=== PATIENT | male | born 1970 | race Caucasian/White ===

== ENCOUNTER 2018-09-26 17:05 | Observation (INO) | payer BC ==
[2018-09-26] MEDS ORDERED: Sodium Chloride 0.9% 10 ML Syringe FLUSH PRN (17:25)
[2018-09-26] MEDS ORDERED: Ondansetron 4 MG/2 ML SDV IVPUSH ONE (17:34)
[2018-09-26] MEDS: Lactated Ringers 1,000 ML IV SCH ×3 (18:00→22:52)
[2018-09-26 18:01] LABS: ANION GAP 9.3 mmol/L (5-15); CHLORIDE,CL 102 mmol/L (98-115); SODIUM,NA 137 mmol/L (136-145)
[2018-09-26] MEDS ORDERED: Promethazine 6.25 MG/5 ML Liquid 10 ML UD Cup PO ONE (18:25)
--- NOTE | 2018-09-26 20:53 | CR ---
[id number] RAD/RAD Abdomen Flat Plate 1V Exam: RAD Abdomen Flat Plate 1V Clinical Data: ABDOMINAL DISCOMFORT COMPARISON: CORRELATION IS MADE WITH THE EXAM OF SEPTEMBER 09, 2014. FINDINGS: There is a mild ileus. There is no organomegaly. There is no pathologic calcification. There are surgical changes. IMPRESSION: MILD ILEUS. Christopher Martinez MD 09/26/18 [id number] Thank you for allowing us to participate in the care of your patient.
[2018-09-26] MEDS ORDERED: Morphine 4 MG/ML Syringe IVPUSH ONE (22:19)
[2018-09-27] MEDS: Ondansetron 4 MG/2 ML SDV IVPUSH PRN ×2 (03:18→07:37)
[2018-09-27] MEDS: Lactated Ringers 1,000 ML IV SCH ×2 (07:37→22:43)
[2018-09-27] MEDS ORDERED: Promethazine 25 MG/ML SDV IM PRN (10:28)
--- NOTE | 2018-09-27 10:41 | PCM.PN ---
- General Info Date of Service: 09/27/18 Functional Status: Reports: Pain Controlled, Urinating. Denies: Tolerating Diet (nothing by mouth), Ambulating, New Symptoms - Review of Systems General: Reports: Appetite. Denies: Fever HEENT: Reports: No Symptoms Pulmonary: Reports: No Symptoms Cardiovascular: Reports: No Symptoms Gastrointestinal: Reports: Abdominal Pain (mid epigastric), Flatus, Nausea. Denies: Decreased Appetite, Diarrhea, Difficulty Swallowing, Melena, Vomiting Genitourinary: Reports: No Symptoms Musculoskeletal: Reports: No Symptoms Skin: Reports: No Symptoms Neurological: Reports: No Symptoms Psychiatric: Reports: No Symptoms - Patient Data Vitals - Most Recent: Last Vital Signs Temp 98.0 F 09/27/18 06:59 Pulse 52 L 09/27/18 06:59 Resp 20 09/27/18 06:59 BP 178/93 H 09/27/18 06:59 Pulse Ox 94 L 09/27/18 06:59 Orthostatic Blood Pressure [ 105/56 Standing] Orthostatic Blood Pressure [ 112/62 Sitting] Orthostatic Blood Pressure [ 97/47 Supine] Weight - Most Recent: 408 lb I&O - Last 24 Hours: Intake & Output 09/26/18 09/27/18 09/27/18 22:59 06:59 14:59 Intake Total 2812 Balance 2812 Lab Results Last 24 Hours: Laboratory Results - last 24 hr 09/26/18 09/26/18 09/26/18 Range/Units 17:30 17:30 17:30 WBC 16.82 H (5.00-10.00) 10^3/uL RBC 4.96 (4.50-6.00) 10^6/uL Hgb 15.3 (13.0-17.0) g/dL Hct 45.6 (40.0-52.0) % MCV 91.9 D (82.0-92.0) fL MCH 30.8 (27.0-31.0) pg MCHC 33.6 (32.0-36.0) g/dL RDW 13.6 (11.5-14.5) % Plt Count 318 (150-400) 10^3/uL MPV 9.2 (7.4-10.4) fL Immature Gran % (Auto) 0.2 (0.0-5.0) % Neut % (Auto) 73.2 H (50.0-70.0) % Lymph % (Auto) 20.6 (20.0-40.0) % [place] % (Auto) 5.6 (2.0-8.0) % Eos % (Auto) 0.3 L (1.0-3.0) % Baso % (Auto) 0.1 (0.0-1.0) % Immature Gran # (Auto) 0.04 (0.00-0.50) 10^3/uL Neut # (Auto) 12.29 H (2.50-7.00) 10^3/uL Lymph # (Auto) 3.47 (1.00-4.00) 10^3/uL [place] # (Auto) 0.95 H (0.10-0.80) 10^3/uL Eos # (Auto) 0.05 L (0.10-0.30) 10^3/uL Baso # (Auto) 0.02 (0.00-0.10) 10^3/uL ESR 6 (0-15) mm/hr Sodium 137 (136-145) mmol/L Potassium 3.5 (3.3-5.3) mmol/L Chloride 102 (98-115) mmol/L Carbon Dioxide 29.2 (21.0-32.0) mmol/L Anion Gap 9.3 (5-15) mmol/L BUN 34 H D (6-25) mg/dL Creatinine 1.23 H (0.51-1.17) mg/dL Est Cr Clr Drug Dosing 83.24 mL/min Estimated GFR (MDRD) > 60 mL/min Glucose 92 (75 - 99) mg/dL Calcium 8.4 L (8.7-10.3) mg/dL Total Bilirubin 0.4 (0.2-1.0) mg/dL AST 16 (15-37) U/L ALT 37 (12-78) U/L Alkaline Phosphatase 78 (46-116) IU/L Total Protein 7.4 (6.4-8.2) g/dL Albumin 3.30 (3.00-4.80) g/dL 09/27/18 Range/Units 07:55 WBC 14.33 H (5.00-10.00) 10^3/uL RBC 4.75 (4.50-6.00) 10^6/uL Hgb 14.8 (13.0-17.0) g/dL Hct 43.3 (40.0-52.0) % MCV 91.2 (82.0-92.0) fL MCH 31.2 H (27.0-31.0) pg MCHC 34.2 (32.0-36.0) g/dL RDW 13.5 (11.5-14.5) % Plt Count 266 (150-400) 10^3/uL MPV 9.2 (7.4-10.4) fL Immature Gran % (Auto) 0.2 (0.0-5.0) % Neut % (Auto) 81.6 H (50.0-70.0) % Lymph % (Auto) 14.0 L (20.0-40.0) % [place] % (Auto) 4.0 (2.0-8.0) % Eos % (Auto) 0.1 L (1.0-3.0) % Baso % (Auto) 0.1 (0.0-1.0) % Immature Gran # (Auto) 0.03 (0.00-0.50) 10^3/uL Neut # (Auto) 11.68 H (2.50-7.00) 10^3/uL Lymph # (Auto) 2.01 (1.00-4.00) 10^3/uL [place] # (Auto) 0.58 (0.10-0.80) 10^3/uL Eos # (Auto) 0.02 L (0.10-0.30) 10^3/uL Baso # (Auto) 0.01 (0.00-0.10) 10^3/uL ESR (0-15) mm/hr Sodium (136-145) mmol/L Potassium (3.3-5.3) mmol/L Chloride (98-115) mmol/L Carbon Dioxide (21.0-32.0) mmol/L Anion Gap (5-15) mmol/L BUN (6-25) mg/dL Creatinine (0.51-1.17) mg/dL Est Cr Clr Drug Dosing mL/min Estimated GFR (MDRD) mL/min Glucose (75 - 99) mg/dL Calcium (8.7-10.3) mg/dL Total Bilirubin (0.2-1.0) mg/dL AST (15-37) U/L ALT (12-78) U/L Alkaline Phosphatase (46-116) IU/L Total Protein (6.4-8.2) g/dL Albumin (3.00-4.80) g/dL Med Orders - Current: Current Medications Escitalopram Oxalate (Lexapro) 10 mg PO DAILY [facility] Lactated Ringer's (Ringers, Lactated) 1,000 mls @ 125 mls/hr IV ASDIRECTED [facility] Last Admin: 09/27/18 07:37 Dose: 125 mls/hr Lisinopril (Prinivil) 10 mg PO DAILY [facility] Omeprazole (Omeprazole) 20 mg PO DAILY [facility] Promethazine HCl (Phenergan) 25 mg IM Q6H PRN PRN Reason: Nausea Sodium Chloride (Saline Flush) 10 ml FLUSH Q8HR PRN PRN Reason: keep vein open Last Admin: 09/27/18 03:18 Dose: 10 ml Discontinued Medications Lactated Ringer's (Ringers, Lactated) 1,000 mls @ 500 mls/hr IV Q2H DAREN Stop: 09/26/18 21:24 Last Admin: 09/26/18 20:00 Dose: 500 mls/hr Morphine Sulfate (Morphine) 4 mg IVPUSH ONETIME ONE Stop: 09/26/18 22:20 Last Admin: 09/26/18 22:52 Dose: 4 mg Ondansetron HCl (Zofran) 4 mg IVPUSH Q4H PRN PRN Reason: Nausea/Vomiting Last Admin: 09/27/18 07:37 Dose: 4 mg Ondansetron HCl (Zofran) 4 mg IVPUSH ONETIME ONE Stop: 09/26/18 17:35 Last Admin: 09/26/18 17:53 Dose: 4 mg Promethazine HCl (Phenergan) 25 mg PO ONETIME ONE Stop: 09/26/18 18:26 Last Admin: 09/26/18 18:48 Dose: Not Given - Exam Quality Assessment: DVT Prophylaxis (SCDs, will). No: Supplemental Oxygen Neck: Supple Lungs: Clear to Auscultation, Normal Respiratory Effort Cardiovascular: Regular Rate, Regular Rhythm GI/Abdominal Exam: Soft, Non-Tender (somewhat tender mid epigastric), No Distention, Other (very large body habitus,). No: Normal Bowel Sounds (low bowel tones), Distended, Guarding, Rigid, Tender, Mass Back Exam: No: CVA Tenderness (R) Psy/Mental Status: Alert. No: Anxious - Problem List Review Problem List Initiated/Reviewed/Updated: Yes - My Orders Last 24 Hours: My Active Orders 09/26/18 17:25 Patient Status [ADT] Routine Oxygen Therapy [RC] PRN Up to Chair [RC] ASDIRECTED VTE/DVT Education [RC] PER UNIT ROUTINE Vital Signs [RC] 0300,0700,1100,1500,1900,2300 Sodium Chloride 0.9% [Saline Flush] 10 ml FLUSH Q8HR PRN Saline Lock Insert [OM.PC] Routine Resuscitation Status Routine 09/26/18 17:33 Patient condition [COMM] Routine 09/26/18 21:00 Orthostatic Vital Signs [RC] ONETIME 09/26/18 21:25 Lactated Ringers [Ringers, Lactated] 1,000 ml IV ASDIRECTED 09/26/18 Dinner Nothing per Oral Now Diet [DIET] 09/27/18 10:26 Abdomen w Cont [CT] Routine 09/27/18 10:28 Promethazine [Phenergan] 25 mg IM Q6H PRN 09/27/18 10:32 Ambulate [RC] PER UNIT ROUTINE 09/27/18 10:34 Antiembolic Devices [RC] PER UNIT ROUTINE SCD [Sequential Compression Device] [OM.PC] Routine 09/27/18 10:45 Escitalopram [Lexapro] 10 mg PO DAILY Omeprazole 20 mg PO DAILY 09/28/18 09:00 Lisinopril [Prinivil] 10 mg PO DAILY - Plan Plan:: history summary Gaston is a 47-year-old morbid-obese gentleman diet admitted into observation last night when he came in the out lying [facility] complaining of a 4-day history of ongoing bilious vomiting every few hours. No fever or abdominal pain however quite nauseous and vomiting. Admitted to some mild diarrhea couple days prior however that had resolved. Does have hx of diverticulitis. No recent antibiotic use. Patient admitted to eating leftover food suspect contamination. History of gallbladder removal years ago likely cause of bilious emesis. Hx of diverticulitis however no abdominal pain. Denied cough chest pain abdominal pain. His BP was quite low in clinic with an accompanying lightheadedness upon standing. Patient does have GERD, hiatial hernia,anxiety, obstructive sleep apnea, history of hypertension. He does take tramadol for chronic pain and he is on a pain management contract. Hospital course to date. Called last night multiple times with increased abdominal pain, morphine given. White count trending down. Blood pressure much improved. Now more euvolemic. Appears ileus is improving. Kept patient NPO. Primary hospital problems Enteritis R/O diverticulitis Ileus, mild Hypotension, resolved comorbid, chronic conditions Morbid obesity Ongoing narcotic use Limited fluid intake hiatal hernia disposition Remain in observation, abdominal CT with contrast this am, ambulation, fluids, consider advancing diet later this PM, no narcotics, long discussion with patient regarding co-morbid exacerbating factors. Will need multi modal approach. Possible discharge this PM depending on CT.
[2018-09-27] MEDS ORDERED: Diatrizoate Meglumine/Diatrizoate Sodium 37% 120 ML Bottle PO ONE (11:27)
[2018-09-27] MEDS ORDERED: Iopamidol 755 Mg/ML 100 ML Bottle IV ONE (11:27)
[2018-09-27] MEDS ORDERED: Sodium Chloride 0.9% 50 ML IV SCH (11:30)
[2018-09-27] MEDS ORDERED: Lisinopril 10 MG Tab PO SCH (13:00)
[2018-09-27] MEDS ORDERED: Escitalopram 10 MG Tab PO SCH (13:00)
--- NOTE | 2018-09-27 13:21 | CT ---
[id number] CT/CT Abdomen Pelvis W IV EXAM: ABDOMEN AND PELVIS CT WITH CONTRAST INDICATION: Ileus. COMPARISON: October 28, 2014. DISCUSSION: There is colonic diverticulosis without evidence of diverticulitis. The small and large bowel are otherwise normal in appearance without dilation or other evidence of ileus/obstruction. Small fat-containing umbilical hernia. 10 mm cyst upper pole right kidney. Cholecystectomy. The liver, spleen, pancreas, adrenal glands, left kidney and appendix are normal in appearance. No adenopathy, free air free fluid. Degenerative changes in the spine. The osseous structures are otherwise unremarkable. IMPRESSION: 1. No acute findings. Arjun Zazueta MD 09/27/18 [id number] Thank you for allowing us to participate in the care of your patient.
[2018-09-27] MEDS: Omeprazole 20 MG Cap.CR PO SCH (13:41)
[2018-09-27] MEDS: Metoclopramide 10 MG Tab PO SCH ×2 (13:42→17:37)
[2018-09-28] MEDS ORDERED: Acetaminophen 325 MG Tab PO ONE (05:10)
[2018-09-28] MEDS: Metoclopramide 10 MG Tab PO SCH (06:14)
[2018-09-28] MEDS ORDERED: LORazepam 0.5 MG Tab PO ONE ×2 (06:54→08:35)
[2018-09-28] MEDS ORDERED: Ondansetron 4 MG/2 ML SDV IVPUSH PRN (06:55)
[2018-09-28] MEDS: Lactated Ringers 1,000 ML IV SCH (07:24)
[2018-09-28 07:45] LABS: ANION GAP 15.3 mmol/L (5-15); CHLORIDE,CL 104 mmol/L (98-115); SODIUM,NA 138 mmol/L (136-145)
[2018-09-28] MEDS ORDERED: LORazepam 0.5 MG Tab ONE (08:32)
[2018-09-28 08:59] VITALS: BP 196/100
[2018-09-28] MEDS: Omeprazole 20 MG Cap.CR PO SCH (08:59)
[2018-09-28] MEDS ORDERED: Lisinopril 10 MG Tab PO SCH (09:00)
[2018-09-28] MEDS ORDERED: Escitalopram 10 MG Tab PO SCH (09:00)
--- NOTE | 2018-09-28 11:11 | PCM.DCSUM1 ---
Discharge Summary - Hospital Course Diagnosis: Stroke: No - Discharge Data Discharge Date: 09/28/18 Discharge Disposition: Home, Self-Care 01 Condition: Fair - Patient Instructions Diet: Usual Diet as Tolerated, Drink 8-10+ Glasses/Day Activity: Apply Ice Driving: Do Not Drive Showering/Bathing: May Shower Notify Provider of: Fever, Increased Pain, Nausea and/or Vomiting Other/Special Instructions: Report any worsening anxiety - Discharge Plan *PRESCRIPTION DRUG MONITORING PROGRAM REVIEWED*: Yes *COPY OF PRESCRIPTION DRUG MONITORING REPORT IN PATIENT MARIANO: Yes Prescriptions/Med Rec: ALPRAZolam [Alprazolam] 0.5 mg PO Q8H PRN #30 tablet PRN Reason: Anxiety Home Medications: Home Meds Multivitamin [Multi-Vitamin Daily] 1 tab PO DAILY 04/20/14 [History] Omeprazole [Prilosec] 20 mg PO DAILY 04/20/14 [History] atorvaSTATin [Lipitor] 10 mg PO BEDTIME 04/20/14 [History] Nystatin/Triamcinolone Crm [Mycolog Crm] 1 applic TOP BID PRN 09/26/18 [History] Oxymetazoline [Afrin Original 0.05% Nasal [place]] 2 sprays INH Q12HR PRN [History] Topiramate [Topamax] 100 mg PO BID 09/26/18 [History] Varenicline Tartrate [Chantix] 1 mg PO ASDIRECTED 09/26/18 [History] ALPRAZolam [Alprazolam] 0.5 mg PO Q8H PRN #30 tablet 09/28/18 [Rx] Escitalopram [Lexapro] 20 mg PO DAILY #60 09/28/18 [Rx] Lisinopril 20 mg PO DAILY #30 09/28/18 [Rx] Referrals: Sudhakar Gama TRANSPORTATION OFFICER [Primary Care Provider] - (midweek next week) - Discharge Summary/Plan Comment DC Time >30 min.: Yes Discharge Summary/Plan Comment: final diagnosis Ileus, clinically resolved diverticulosis anxiety, profound morbid obesity, comorbid GERD, chronic narcotic use, discontinued history summary 47-year-old morbid-obese gentleman who I had seen in I had seen in o/p clinic was admitted into observation due to a 4-day history of ongoing bilious vomiting every few hours. No fever or abdominal pain however quite nauseous and vomiting. Admitted to some mild diarrhea couple days prior however that had resolved at the time I saw him. Does have hx of diverticulitis. No recent antibiotic use. Patient admitted to eating leftover food rhea he thought was contamination. hospital course fairly well until closer to discharge as the patient did have significant anxiety requiring alprazolam acutely. Patient felt "something must be wrong" however abdominal CT demonstated no acute pathology. He did have a KUB which demonstrated ileus he was given bowel rest, Nothing by mouth. It resolved. No acute surgical abd. 1 point I did receive also the middle night due to increased abdominal pain, morphine given. White count trending down. Blood pressure much improved. euvolemic early on in admission. Reglan was given. He started having bowel movements. on discharge he had less pain--good bowel tones. He does take tramadol for chronic pain and he is on a pain management contract so I was concern regarding ongoing narcotics and explained to him about likely cause of ileus. the day of discharged I was notified early upon arriving at the patient had significant anxiety while in the hospital-- requiring 2 does of alprazolam. Patient did calm down and was ready for discharge. he did have elevation of blood pressure which required increasing his lisinopril. medication changes/adjustments upon discharge Discontinue tramadol his continue phentermine, due to high Increase lisinopril to 20 mg daily Increase Lexapro to 20 mg aryan Alprazolam 0.25 mg by mouth every 8 hours when necessary anxiety Disposition/follow-up Patient was discharged, careful instructions were given, will follow-up in [facility]. Will need psychiatric/psychology referral - General Info Date of Service: 09/28/18 Functional Status: Reports: Pain Controlled, Ambulating, Urinating, New Symptoms (severe anxiety) - Review of Systems General: Reports: Appetite (desires to eat). Denies: Fever, Fatigue, Malaise, Chills, Night Sweats HEENT: Reports: No Symptoms Pulmonary: Reports: No Symptoms Cardiovascular: Reports: No Symptoms Gastrointestinal: Reports: Abdominal Pain (on and off abdominal pain). Denies: Constipation, Decreased Appetite, Difficulty Swallowing, Vomiting (patient state dry heaving, nurses report hiccups) Genitourinary: Reports: No Symptoms Musculoskeletal: Reports: Back Pain Skin: Denies: Bruising Neurological: Reports: No Symptoms Psychiatric: Reports: Anxiety, Agitation - Patient Data Vitals - Most Recent: Last Vital Signs Temp 99.1 F 09/28/18 06:51 Pulse 55 L 09/28/18 06:51 Resp 20 09/28/18 06:51 BP 196/100 H 09/28/18 08:59 Pulse Ox 98 09/28/18 06:55 Orthostatic Blood Pressure [ 122/89 Standing] Orthostatic Blood Pressure [ 144/84 Sitting] Orthostatic Blood Pressure [ 160/87 Supine] Weight - Most Recent: 408 lb I&O - Last 24 hours: Intake & Output 09/27/18 09/28/18 09/28/18 22:59 06:59 14:59 Intake Total 757 1117 Balance 757 1117 Lab Results - Last 24 hrs: Laboratory Results - last 24 hr 09/28/18 09/28/18 Range/Units 06:55 06:55 WBC 11.90 H (5.00-10.00) 10^3/uL RBC 4.75 (4.50-6.00) 10^6/uL Hgb 14.9 (13.0-17.0) g/dL Hct 43.3 (40.0-52.0) % MCV 91.2 (82.0-92.0) fL MCH 31.4 H (27.0-31.0) pg MCHC 34.4 (32.0-36.0) g/dL RDW 13.4 (11.5-14.5) % Plt Count 285 (150-400) 10^3/uL MPV 9.5 (7.4-10.4) fL Immature Gran % (Auto) 0.3 (0.0-5.0) % Neut % (Auto) 72.8 H (50.0-70.0) % Lymph % (Auto) 20.0 (20.0-40.0) % [place] % (Auto) 6.2 (2.0-8.0) % Eos % (Auto) 0.4 L (1.0-3.0) % Baso % (Auto) 0.3 (0.0-1.0) % Immature Gran # (Auto) 0.04 (0.00-0.50) 10^3/uL Neut # (Auto) 8.66 H (2.50-7.00) 10^3/uL Lymph # (Auto) 2.38 (1.00-4.00) 10^3/uL [place] # (Auto) 0.74 (0.10-0.80) 10^3/uL Eos # (Auto) 0.05 L (0.10-0.30) 10^3/uL Baso # (Auto) 0.03 (0.00-0.10) 10^3/uL Sodium 138 (136-145) mmol/L Potassium 3.3 (3.3-5.3) mmol/L Chloride 104 (98-115) mmol/L Carbon Dioxide 22.0 (21.0-32.0) mmol/L Anion Gap 15.3 H (5-15) mmol/L BUN 14 (6-25) mg/dL Creatinine 0.76 (0.51-1.17) mg/dL Est Cr Clr Drug Dosing 134.72 mL/min Estimated GFR (MDRD) > 60 mL/min Glucose 121 H (75 - 99) mg/dL Calcium 8.5 L (8.7-10.3) mg/dL Med Orders - Current: Current Medications Escitalopram Oxalate (Lexapro) 20 mg PO DAILY [facility] Last Admin: 09/28/18 08:58 Dose: 20 mg Lactated Ringer's (Ringers, Lactated) 1,000 mls @ 125 mls/hr IV ASDIRECTED [facility] Last Admin: 09/28/18 07:24 Dose: 125 mls/hr Sodium Chloride (Normal Saline) 50 mls @ 200 mls/min IV ASDIRECTED [facility] Last Admin: 09/27/18 13:59 Dose: 200 mls/min Lisinopril (Prinivil) 20 mg PO DAILY [facility] Last Admin: 09/28/18 08:59 Dose: 20 mg Metoclopramide HCl (Reglan) 10 mg PO TIDAC [facility] Last Admin: 09/28/18 06:14 Dose: 10 mg Omeprazole (Omeprazole) 20 mg PO DAILY [facility] Last Admin: 09/28/18 08:59 Dose: 20 mg Ondansetron HCl (Zofran) 4 mg IVPUSH Q4H PRN PRN Reason: Nausea/Vomiting Last Admin: 09/28/18 07:15 Dose: 4 mg Sodium Chloride (Saline Flush) 10 ml FLUSH Q8HR PRN PRN Reason: keep vein open Last Admin: 09/27/18 03:18 Dose: 10 ml Discontinued Medications Acetaminophen (Tylenol) 650 mg PO NOW ONE Stop: 09/28/18 05:11 Last Admin: 09/28/18 05:34 Dose: 650 mg Diatrizoate Meglum/Diatrizoate Sod (Gastrografin 37%) 120 ml PO ONETIME ONE Stop: 09/27/18 11:28 Last Admin: 09/27/18 14:00 Dose: 30 ml Escitalopram Oxalate (Lexapro) 10 mg PO DAILY [facility] Last Admin: 09/27/18 13:42 Dose: 10 mg Lactated Ringer's (Ringers, Lactated) 1,000 mls @ 500 mls/hr IV Q2H [facility] Stop: 09/26/18 21:24 Last Admin: 09/26/18 20:00 Dose: 500 mls/hr Iopamidol (Isovue-370 (76%)) 100 ml IV ONETIME ONE Stop: 09/27/18 11:28 Last Admin: 09/27/18 13:59 Dose: 125 ml Lisinopril (Prinivil) 10 mg PO DAILY [facility] Last Admin: 09/27/18 13:41 Dose: 10 mg Lorazepam (Ativan) 0.5 mg PO ONETIME ONE Stop: 09/28/18 06:55 Last Admin: 09/28/18 07:10 Dose: 0.5 mg Lorazepam (Ativan) Confirm Administered Dose 0.5 mg .ROUTE .STK-MED ONE Stop: 09/28/18 08:33 Last Admin: 09/28/18 08:58 Dose: 0.5 mg Lorazepam (Ativan) 0.5 mg PO ONETIME ONE Stop: 09/28/18 08:36 Last Admin: 09/28/18 08:59 Dose: 0.5 mg Morphine Sulfate (Morphine) 4 mg IVPUSH ONETIME ONE Stop: 09/26/18 22:20 Last Admin: 09/26/18 22:52 Dose: 4 mg Ondansetron HCl (Zofran) 4 mg IVPUSH Q4H PRN PRN Reason: Nausea/Vomiting Last Admin: 09/27/18 07:37 Dose: 4 mg Ondansetron HCl (Zofran) 4 mg IVPUSH ONETIME ONE Stop: 09/26/18 17:35 Last Admin: 09/26/18 17:53 Dose: 4 mg Promethazine HCl (Phenergan) 25 mg PO ONETIME ONE Stop: 09/26/18 18:26 Last Admin: 09/26/18 18:48 Dose: Not Given Promethazine HCl (Phenergan) 25 mg IM Q6H PRN PRN Reason: Nausea Last Admin: 09/27/18 11:03 Dose: 25 mg - Exam General: Reports: Alert, Oriented, Moderate Distress Neck: Reports: Supple Lungs: Reports: Clear to Auscultation, Normal Respiratory Effort Cardiovascular: Reports: Regular Rate, Regular Rhythm GI/Abdominal Exam: Normal Bowel Sounds, Soft, Non-Tender, No Distention. No: No Mass, Distended, Guarding, Rigid, Rebound, Abnormal Bowel Sounds, Mass (Male) Exam: Deferred Back Exam: Denies: CVA Tenderness (L) Extremities: No Pedal Edema Psy/Mental Status: Reports: Anxious
== END 2018-09-28 11:00 | disposition home or self-care (01) ==
LOC: UNDOADMOB 17:05 → KA.MS 17:05
PROVIDERS: ADMIT Nurse Practitioner Family; ATTEND Nurse Practitioner Family
DX: K56.7 Ileus, unspecified (principal); A08.4 Viral intestinal infection, unspecified; K57.30 Diverticulosis of large intestine without perforation or abscess without bleeding; K21.9 Gastro-esophageal reflux disease without esophagitis; K44.9 Diaphragmatic hernia without obstruction or gangrene; I10 Essential (primary) hypertension; I95.9 Hypotension, unspecified; E86.1 Hypovolemia; E86.0 Dehydration; E66.01 Morbid (severe) obesity due to excess calories; F41.9 Anxiety disorder, unspecified; G47.33 Obstructive sleep apnea (adult) (pediatric); G89.29 Other chronic pain; M54.5 Low back pain; M25.562 Pain in left knee; M25.561 Pain in right knee; Z90.49 Acquired absence of other specified parts of digestive tract; Z68.43 Body mass index [BMI] 50.0-59.9, adult; Z99.89 Dependence on other enabling machines and devices; Z87.891 Personal history of nicotine dependence; Z79.899 Other long term (current) drug therapy
CPT/HCPCS: 36415; 74018; 74177; 80048; 80053; 85025; 85651; 96361; 96372; 96374; 96375; 96376; A9270; G0378; G0379; J2270; J2405; J2550; J7050; J7120; Q9963; Q9967

== ENCOUNTER 2019-09-12 10:13 | Observation (INO) | payer BC ==
[2019-09-12] MEDS ORDERED: Sodium Chloride 0.9% 1,000 ML IV ONE ×2 (10:23→14:12)
[2019-09-12] MEDS ORDERED: Ondansetron 4 MG/2 ML SDV IVPUSH ONE ×2 (10:23→12:42)
[2019-09-12] MEDS ORDERED: HYDROmorphone 1 MG/ML Syringe IVPUSH ONE (10:56)
[2019-09-12] MEDS ORDERED: Ketorolac 30 MG/ML SDV IVPUSH ONE (10:56)
[2019-09-12 11:05] LABS: ANION GAP 13.4 mmol/L (5-15); CHLORIDE,CL 106 mmol/L (98-115); SODIUM,NA 142 mmol/L (136-145)
--- NOTE | 2019-09-12 11:27 | EDM.PDOC ---
ED HPI GENERAL MEDICAL PROBLEM - General Chief Complaint: Abdominal Pain Time Seen by Provider: 09/12/19 10:48 Source of Information: Reports: Patient History Limitations: Reports: No Limitations - History of Present Illness INITIAL COMMENTS - FREE TEXT/NARRATIVE: Patient presents with vomiting and abdominal pain that started about 0700 today. He says this is similar to several episodes (went to ER in [place] or [place] 3-4 times and stayed home with some) he has had since his panniculectomy on 05/01/19. The most recent ER visit, a month ago in [place], showed nothing significant on abdominal CT per patient. He says the vomiting and pain typically last about 24 hours, sometimes a little longer. He usually gets relief from Dilaudid. He also gets relief by taking hot showers or getting in a hot tub. He uses marijuana daily since the surgery and has used quite regularly for the past 18 months he says. He has never heard of cannabinoid hyperemesis syndrome. Prior to the panniculectomy, he lost 200# through diet, exercise and medications, overseen by Sudhakar Gama. He thought he would be getting a gastric bypass but, after visiting with some who had it, decided to try other options. His abdominal pain is close to the midline of his surgical incision. There are a few firm knots or nodules probably about 1 cm in size that are a little tender. He tells me that "they" told him the lumps would eventually go away but he doesn't know when. They are consistent with scar tissue on exam today, are mobile and discreet. Abdominal Pain Score (Numeric/FACES): 10 - Related Data Allergies Allergy/AdvReac Type Severity Reaction Status Date / Time Enviromental Allergies Allergy Hives Uncoded 09/12/19 10:23 Home Meds: Home Meds Multivitamin [Multi-Vitamin Daily] 1 tab PO DAILY 04/20/14 [History] Oxymetazoline [Afrin Original 0.05% Nasal [place]] 2 sprays INH Q12HR PRN 09/26/18 [History] Lisinopril 20 mg PO DAILY #30 09/28/18 [Rx] Acetaminophen/HYDROcodone [[place] 325-5 MG] 1 tab PO BID PRN 09/12/19 [History] Omeprazole Magnesium [Prilosec Otc] 20 mg PO DAILY 09/12/19 [History] Ondansetron [Zofran] 4 mg PO Q4H 09/12/19 [History] Pregabalin [Lyrica] 75 mg PO BID 09/12/19 [History] Past Medical History - Past Health History Medical/Surgical History: Denies Medical/Surgical History Cardiovascular History: Reports: High Cholesterol, Hypertension, Other (See Below) Other Cardiovascular History: angiogram Gastrointestinal History: Reports: Hiatal Hernia, Other (See Below) Other Gastrointestinal History: gastroenteritis Musculoskeletal History: Reports: Arthritis, Back Pain, Chronic Psychiatric History: Reports: Other (See Below) Other Psychiatric History: recovering alcoholic Endocrine/Metabolic History: Reports: Obesity/BMI 30+ Dermatologic History: Reports: Other (See Below) Other Dermatologic History: hydrogenit - Infectious Disease History Infectious Disease History: Reports: C-Difficile, Influenza - Past Surgical History Other GI Surgeries/Procedures: gallbladder out 4 weeks ago Social & Family History - Family History Family Medical History: Noncontributory - Tobacco Use Smoking Status *Q: Current Some Day Smoker Years of Tobacco use: 30 Packs/Tins Daily: 2 - Recreational Drug Use Recreational Drug Use: Yes Recreational Drug Type: Reports: Marijuana/Hashish ED ROS GENERAL - Review of Systems Review Of Systems: See Below Constitutional: Reports: Chills (gets cold easily with these episodes; hot showers help ). Denies: Fever, Malaise, Weakness HEENT: Denies: Ear Pain, Throat Pain, Vision Change Respiratory: Denies: Shortness of Breath, Cough Cardiovascular: Denies: Chest Pain, Lightheadedness, Syncope GI/Abdominal: Reports: Abdominal Pain, Nausea, Vomiting. Denies: Constipation, Diarrhea (normal daily BM) : Denies: Dysuria, Flank Pain Musculoskeletal: Denies: Neck Pain, Shoulder Pain, Arm Pain, Back Pain, Hand Pain Skin: Reports: Diaphoresis (today with the vomiting). Denies: Cyanosis, Jaundice, Mottled, Pallor Neurological: Denies: Confusion, Dizziness, Headache, Seizure, Syncope, Trouble Speaking, Difficulty Walking Psychiatric: Reports: Agitation (moderate agitation today until pain controlled with Dilaudid), Anxiety. Denies: Confusion ED EXAM, GI/ABD - Physical Exam Exam: See Below Exam Limited By: No Limitations General Appearance: Alert, WD/WN, No Apparent Distress Eyes: Bilateral: Normal Appearance, EOMI Ears: Normal External Exam, Hearing Grossly Normal Nose: Normal Inspection, No Blood Throat/Mouth: Normal Inspection, Normal Lips, Normal Voice, No Airway Compromise Head: Atraumatic, Normocephalic Neck: Normal Inspection, Full Range of Motion Respiratory/Chest: No Respiratory Distress, Lungs Clear, Normal Breath Sounds, No Accessory Muscle Use Cardiovascular: Regular Rate, Rhythm, No Murmur GI/Abdominal Exam: Normal Bowel Sounds, Soft, No Organomegaly, No Distention, No Abnormal Bruit, Tender (along surgical incision, especially at midline where 1 cm nodules are present) Back Exam: Normal Inspection, Full Range of Motion. No: CVA Tenderness (L), CVA Tenderness (R) Extremities: Normal Inspection, Normal Range of Motion Neurological: Alert, Oriented, Normal Cognition, No Motor/Sensory Deficits Psychiatric: Normal Affect, Anxious Skin Exam: Warm, Dry, Intact, Normal Color, No Rash Course - Vital Signs Last Recorded V/S: Last Vital Signs Temp 96.6 F L 09/12/19 10:17 Pulse 53 L 09/12/19 11:28 Resp 14 09/12/19 11:28 BP 153/71 H 09/12/19 11:28 Pulse Ox 97 09/12/19 11:28 - Orders/Labs/Meds Orders: Active Orders 24 hr Category Date Time Status Patient Status [ADT] Routine ADT 09/12/19 14:06 Ordered CORONAVIRUS COVID-19 RAPID [MOLEC] Routine Lab 09/12/19 13:17 Ordered CORONAVIRUS COVID-19 RAPID [MOLEC] Stat Lab 09/12/19 13:19 Ordered CULTURE BLOOD [BC] Stat Lab 09/12/19 14:12 Ordered CULTURE BLOOD [BC] Stat Lab 09/12/19 14:12 Ordered Sodium Chloride 0.9% @ 999 MLS/HR (1000ml) Med 09/12/19 14:12 Ordered Sodium Chloride 0.9% [Normal Saline] 1,000 ml IV .BOLUS Sodium Chloride 0.9% [Normal Saline] 50 ml Med 09/12/19 13:15 Active IV ASDIRECTED Blood Culture x2 Reflex Set [OM.PC] Stat Oth 09/12/19 14:12 Ordered Medication Orders Sodium Chloride (Normal Saline) 50 mls @ 200 mls/min IV ASDIRECTED DAREN Last Admin: 09/12/19 13:37 Dose: 200 mls/min Documented by: ENDECAY Sodium Chloride (Normal Saline) 1,000 mls @ 999 mls/hr IV .BOLUS ONE Stop: 09/12/19 15:12 Labs: Laboratory Tests 09/12/19 09/12/19 09/12/19 Range/Units 10:30 10:30 13:21 WBC 13.15 H (5.00-10.00) 10^3/uL RBC 5.42 (4.50-6.00) 10^6/uL Hgb 16.1 (13.0-17.0) g/dL Hct 49.5 (40.0-52.0) % MCV 91.3 (82.0-92.0) fL MCH 29.7 (27.0-31.0) pg MCHC 32.5 (32.0-36.0) g/dL RDW 14.9 H (11.5-14.5) % Plt Count 296 (150-400) 10^3/uL MPV 8.7 (7.4-10.4) fL Immature Gran % (Auto) 0.2 (0.0-5.0) % Neut % (Auto) 80.9 H (50.0-70.0) % Lymph % (Auto) 13.2 L (20.0-40.0) % [place] % (Auto) 4.5 (2.0-8.0) % Eos % (Auto) 1.0 (1.0-3.0) % Baso % (Auto) 0.2 (0.0-1.0) % Neut # (Auto) 10.65 H (2.50-7.00) 10^3/uL Lymph # (Auto) 1.73 (1.00-4.00) 10^3/uL [place] # (Auto) 0.59 (0.10-0.80) 10^3/uL Eos # (Auto) 0.13 (0.10-0.30) 10^3/uL Baso # (Auto) 0.03 (0.00-0.10) 10^3/uL Immature Gran # (Auto) 0.02 (0.00-0.50) 10^3/uL Sodium 142 (136-145) mmol/L Potassium 3.7 (3.3-5.3) mmol/L Chloride 106 (98-115) mmol/L Carbon Dioxide 26.3 (21.0-32.0) mmol/L Anion Gap 13.4 (5-15) mmol/L BUN 15 (6-25) mg/dL Creatinine 0.80 (0.51-1.17) mg/dL Est Cr Clr Drug Dosing 134.15 mL/min Estimated GFR (MDRD) > 60 mL/min Glucose 120 H (75 - 99) mg/dL Calcium 8.9 (8.7-10.3) mg/dL Total Bilirubin 0.7 (0.2-1.0) mg/dL AST 15 (15-37) U/L ALT 21 (12-78) U/L Alkaline Phosphatase 75 (46-116) IU/L C-Reactive Protein 1.8 H (0.0-0.9) mg/dL Total Protein 7.7 (6.4-8.2) g/dL Albumin 3.64 (3.00-4.80) g/dL Meds: Medications Generic Name Dose Route Start Last Admin Trade Name Freq PRN Reason Stop Dose Admin Sodium Chloride 50 mls @ 200 mls/min 09/12/19 13:15 09/12/19 13:37 Normal Saline IV 200 mls/min ASDIRECTED DAREN Administration Sodium Chloride 1,000 mls @ 999 mls/hr 09/12/19 14:12 Normal Saline IV 09/12/19 15:12 .BOLUS ONE Discontinued Medications Generic Name Dose Route Start Last Admin Trade Name Freq PRN Reason Stop Dose Admin Ceftriaxone Sodium 2 gm 09/12/19 14:12 Rocephin IVPUSH 09/12/19 14:13 ONETIME ONE Hydromorphone HCl 1 mg 09/12/19 10:56 09/12/19 11:04 Dilaudid IVPUSH 09/12/19 10:57 1 mg ONETIME ONE Administration Sodium Chloride 1,000 mls @ 1,000 mls/hr 09/12/19 10:23 09/12/19 10:44 Normal Saline IV 09/12/19 11:22 1,000 mls/hr .BOLUS ONE Administration Iopamidol 100 ml 09/12/19 13:13 09/12/19 13:36 Isovue-370 (76%) IV 09/12/19 13:14 75 ml ONETIME ONE Administration Ketorolac Tromethamine 30 mg 09/12/19 10:56 09/12/19 11:00 Toradol IVPUSH 09/12/19 10:57 30 mg ONETIME ONE Administration Ondansetron HCl 4 mg 09/12/19 10:23 09/12/19 10:38 Zofran IVPUSH 09/12/19 10:24 4 mg ONETIME ONE Administration Ondansetron HCl Confirm 09/12/19 12:40 09/12/19 12:44 Zofran Administered 09/12/19 12:41 Not Given Dose 4 mg .ROUTE .STK-MED ONE Ondansetron HCl 4 mg 09/12/19 12:42 09/12/19 12:43 Zofran IVPUSH 09/12/19 12:43 4 mg ONETIME ONE Administration - Re-Assessments/Exams Free Text/Narrative Re-Assessment/Exam: 09/12/19 11:43 Shortly after getting Dilaudid and Toradol, patient became calm and relaxed. He is now resting quietly. Rates pain at 4/10. 09/12/19 13:07 Patient is feeling pain and nausea coming back again. More Zofran is given. I discussed case with Dr. Baker who agrees that this is likely due at least in some part to Cannabinoid Hyperemesis Syndrome, but also likely some narcotic withdrawal. She reviewed his record and says he has seen 5 [facility] providers requesting narcotics and has also been to [place] and [place] ERs. She saw him in clinic two weeks ago requesting narcotic refills from her. She saw his ER visit in [place] 6 weeks ago and they didn't find anything that they could admit for but there was question of possible low-grade diverticulitis without abscess or perforation. They gave him Augmentin outpatient. She would like us to not give him narcotics in ER from here forward. 09/12/19 14:15 CT shows acute uncomplicated sigmoid diverticulitis. I discussed further with Dr. Baker and will admit to observation. Starting Rocephin, more fluids now after blood cultures. Patient stable. Departure - Departure Time of Disposition: 14:13 Disposition: Refer to Observation Condition: Good Clinical Impression: Diverticulitis of sigmoid colon Emesis Qualifiers: Vomiting type: bilious vomiting Nausea presence: with nausea Qualified Code(s): R11.14 - Bilious vomiting - Discharge Information Referrals: Sudhakar Gama, BILL OF MAT[employer]S CLERK [Primary Care Provider] - Forms: ED Department Discharge Sepsis Event Note (ED) - Evaluation Sepsis Screening Result: No Definite Risk - Focused Exam Vital Signs: Vital Signs Temp Pulse Resp BP Pulse Ox 09/12/19 11:28 53 L 14 153/71 H 97 09/12/19 11:12 53 L 18 162/66 H 85 L 09/12/19 10:53 53 L 09/12/19 10:17 96.6 F L 70 20 166/84 H 99 - My Orders Last 24 Hours: My Active Orders 09/12/19 13:15 Sodium Chloride 0.9% [Normal Saline] 50 ml IV ASDIRECTED 09/12/19 13:17 CORONAVIRUS COVID-19 RAPID [MOLEC] Routine 09/12/19 13:19 CORONAVIRUS COVID-19 RAPID [MOLEC] Stat 09/12/19 14:06 Patient Status [ADT] Routine 09/12/19 14:12 CULTURE BLOOD [BC] Stat CULTURE BLOOD [BC] Stat Sodium Chloride 0.9% @ 999 MLS/HR (1000ml) Sodium Chloride 0.9% [Normal Saline] 1,000 ml IV .BOLUS Blood Culture x2 Reflex Set [OM.PC] Stat - Assessment/Plan Last 24 Hours: My Active Orders 09/12/19 13:15 Sodium Chloride 0.9% [Normal Saline] 50 ml IV ASDIRECTED 09/12/19 13:17 CORONAVIRUS COVID-19 RAPID [MOLEC] Routine 09/12/19 13:19 CORONAVIRUS COVID-19 RAPID [MOLEC] Stat 09/12/19 14:06 Patient Status [ADT] Routine 09/12/19 14:12 CULTURE BLOOD [BC] Stat CULTURE BLOOD [BC] Stat Sodium Chloride 0.9% @ 999 MLS/HR (1000ml) Sodium Chloride 0.9% [Normal Saline] 1,000 ml IV .BOLUS Blood Culture x2 Reflex Set [OM.PC] Stat
[2019-09-12] MEDS ORDERED: Ondansetron 4 MG/2 ML SDV ONE (12:40)
[2019-09-12] MEDS ORDERED: Iopamidol 755 Mg/ML 100 ML Bottle IV ONE (13:13)
[2019-09-12] MEDS: Sodium Chloride 0.9% 50 ML IV SCH ×3 (13:37→23:56)
--- NOTE | 2019-09-12 14:01 | CT ---
[id number] CT/CT Abdomen Pelvis W IV EXAM: CT Abdomen Pelvis W IV CLINICAL DATA: ABDOMINAL PAIN,VOMITTING. COMPARISON STUDY: September 27, 2018. FINDINGS: Lung bases are clear. The gallbladder surgically absent. The liver, spleen, pancreas, adrenal glands and kidneys are unremarkable. Subcentimeter hypodensity in the right kidney likely represents a simple cyst. No hydronephrosis or hydroureter. Are multiple colonic diverticula especially within the sigmoid colon. Within the proximal sigmoid colon there is an area of wall thickening surrounding inflammatory change in the region of multiple diverticula. No fluid collection, no pneumatosis or free air. There is trace free fluid within the pelvis. The appendix is visualized and appears normal. Small fat-containing periumbilical hernia. No lymphadenopathy, free fluid, or pneumoperitoneum. Scattered changes of spondylosis the spine. No fracture or osseous lesion. IMPRESSION: 1. Acute uncomplicated sigmoid diverticulitis. Everett Abdalla DO 09/12/19 [id number] Thank you for allowing us to participate in the care of your patient.
[2019-09-12] MEDS ORDERED: cefTRIAXone 2 GM Vial IVPUSH ONE (14:12)
[2019-09-12] MEDS ORDERED: Acetaminophen 325 MG Tab PO PRN (16:57)
[2019-09-12] MEDS ORDERED: Ketorolac 30 MG/ML SDV IM PRN (16:57)
[2019-09-12] MEDS: Ondansetron 4 MG/2 ML SDV IV PRN (17:49)
[2019-09-12] MEDS: metroNIDAZOLE/Normal Saline 500 MG in Premix Bag 1 BAG IV SCH ×2 (17:52→23:49)
[2019-09-12] MEDS ORDERED: Lisinopril 20 MG Tab PO ONE (19:00)
[2019-09-12] MEDS: Pregabalin 25 MG Cap PO SCH (20:35)
[2019-09-12] MEDS: Ketorolac 30 MG/ML SDV IVPUSH PRN (23:45)
[2019-09-13] MEDS: Ondansetron 4 MG/2 ML SDV IV PRN ×2 (00:07→07:51)
[2019-09-13] MEDS: Omeprazole 20 MG Cap.CR PO SCH ×2 (05:35→06:35)
[2019-09-13] MEDS: Ketorolac 30 MG/ML SDV IVPUSH PRN (05:57)
[2019-09-13] MEDS: metroNIDAZOLE/Normal Saline 500 MG in Premix Bag 1 BAG IV SCH (07:55)
[2019-09-13] MEDS: Pregabalin 25 MG Cap PO SCH (08:04)
[2019-09-13 08:07] LABS: ANION GAP 14.8 mmol/L (5-15); CHLORIDE,CL 100 mmol/L (98-115); SODIUM,NA 138 mmol/L (136-145)
[2019-09-13] MEDS ORDERED: Lisinopril 10 MG Tab PO SCH (09:00)
[2019-09-13 10:35] VITALS: BP 174/91; PULSE 65
--- NOTE | 2019-09-13 10:41 | PCM.HP.2 ---
H&P History of Present Illness - General Date of Service: 09/13/19 Admit Problem/Dx: Admission Diagnosis/Problem Admission Diagnosis/Problem Diverticulitis of sigmoid colon Source of Information: Patient, Old Records, Provider (Jian Carlson PA-C (ED provider)), RN Notes Reviewed History Limitations: Reports: No Limitations - History of Present Illness Initial Comments - Free Text/Narative: Mr. Rivero was in his usual state of health (notably with chronic intermittent abdominal and back pain as well as chronic intermittent nausea) until the day prior to presentation to the ED and that evening was out late with friends not having much fluid intake and felt like he became dehydrated. The following morning, he developed severe lower abdominal pain and increased nausea with emesis. Upon presentation to the ED, he complained of severe pain in the lower abdomen. His chronic pain is most often involving his back, lower abdomen at the surgical incision sites, and thighs at the site of increased friction of soft tissue s/p significant weight loss. He previously was taking tramadol on a daily basis and in the more recent past endorses that this hasn't worked as well any longer and has been taking [place] 5/325mg on a typically daily basis. He has been having more persistence of nausea. Endorsed to the ED provider that hot showers are typically the only thing that makes the nausea improve or go away. Has ondansetron on medication list, but hasn't been taking regularly due to feeling it hasn't helped as much. He has a history of prior substance abuse, including with alcohol (sober since January 2015) and cocaine. He currently endorses smoking marijuana (doesn't specify amount) daily in the evening. He denies any other current or recent substance use. Work-up in the ED revealed CT evidence of acute sigmoid diverticulitis without complication for which observation admission was deemed necessary by the ED provider and patient due to significant pain and nausea. This morning on rounds, he endorses feeling much better and feels ready for discharge to home for ongoing management. Tolerating clear liquids without significant pain or nausea. Voiding and stooling well. He has no new complaints since admission. Abdominal Pain Score (Numeric/FACES): 4 - Related Data Allergies/Adverse Reactions: Allergies Allergy/AdvReac Type Severity Reaction Status Date / Time Enviromental Allergies Allergy Hives Uncoded 09/12/19 10:23 Home Medications: Home Meds Multivitamin [Multi-Vitamin Daily] 1 tab PO DAILY 04/20/14 [History] Oxymetazoline [Afrin Original 0.05% Nasal [place]] 2 sprays INH Q12HR PRN 09/26/18 [History] Lisinopril 20 mg PO DAILY #30 09/28/18 [Rx] Omeprazole Magnesium [Prilosec Otc] 20 mg PO DAILY 09/12/19 [History] Pregabalin [Lyrica] 75 mg PO BID 09/12/19 [History] Acetaminophen [Tylenol] 650 mg PO Q4H PRN tablet 09/13/19 [Rx] Acetaminophen/HYDROcodone [[place] 325-5 MG] 1 tab PO BID PRN #10 09/13/19 [Rx] Amoxicillin/Clavulanate K [Augmentin 875-125 MG] 1 tab PO BID 8 Days #16 tablet 09/13/19 [Rx] Ketorolac [Toradol] 10 mg PO Q6H PRN #12 tab 09/13/19 [Rx] Ondansetron [Zofran] 4 mg PO Q4H PRN #30 tab 09/13/19 [Rx] Past Medical History Cardiovascular History: Reports: High Cholesterol, Hypertension, Other (See Below) Other Cardiovascular History: angiogram Gastrointestinal History: Reports: Diverticulosis, Hiatal Hernia, Other (See B dayan) Other Gastrointestinal History: gastroenteritis Musculoskeletal History: Reports: Arthritis, Back Pain, Chronic Psychiatric History: Reports: Other (See Below) Other Psychiatric History: recovering alcoholic Endocrine/Metabolic History: Reports: Obesity/BMI 30+ Dermatologic History: Reports: Other (See Below) Other Dermatologic History: hydrogenit - Infectious Disease History Infectious Disease History: Reports: C-Difficile, Influenza - Past Surgical History GI Surgical History: Reports: Cholecystectomy, Colonoscopy, EGD, Hernia, Abdom inal, Other (See Below) (Panniculectomy) Other GI Surgeries/Procedures: gallbladder out 4 weeks ago Musculoskeletal Surgical History: Reports: Arthroscopic Knee Social & Family History - Family History GI: Reports: Diverticulitis, Diverticulosis Musculoskeletal: Reports: Arthritis, Back pain, Chronic, Fibromyalgia - Tobacco Use Smoking Status *Q: Current Some Day Smoker Years of Tobacco use: 30 Packs/Tins Daily: 2 - Caffeine Use Caffeine Use: Reports: Soda - Recreational Drug Use Recreational Drug Use: Yes Drug Use in Last 12 Months: Yes Recreational Drug Type: Reports: Marijuana/Hashish Recreational Drug Use Frequency: Daily Recreational Drug Route: Reports: Inhaled H&P Review of Systems - Review of Systems: Review Of Systems: See Below General: Reports: Malaise, Fatigue, Decreased Appetite. Denies: Fever, Chills HEENT: Denies: Rhinitis, Sinus Congestion, Sore Throat Pulmonary: Denies: Shortness of Breath, Wheezing, Cough Cardiovascular: Denies: Chest Pain, Palpitations, Edema Gastrointestinal: Reports: Abdominal Pain, Nausea, Vomiting. Denies: Black Stool, Bloody Stool, Difficulty Swallowing, Hematemesis, Hematochezia Genitourinary: Reports: Frequency (chronic). Denies: Dysuria, Burning, Hematuria Musculoskeletal: Reports: Back Pain, Muscle Pain. Denies: Joint Swelling Skin: Denies: Jaundice, Pallor, Rash Psychiatric: Denies: Confusion, Depression, Anxiety Neurological: Reports: Headache. Denies: Numbness, Tingling Exam - Exam Exam: See Below - Vital Signs Vital Signs: Last Vital Signs Temp 36.8 C 09/13/19 06:15 Pulse 69 09/13/19 06:15 Resp 20 09/13/19 06:15 BP 131/90 09/13/19 08:04 Pulse Ox 97 09/13/19 06:15 Weight: 129.274 kg - Exam Physical Exam Comments:: GENERAL: Well-appearing adult white male lying in hospital bed in no acute distr ess. HEENT: Normocephalic, atraumatic. Conjunctiva clear. Nares patent without discharge. Mucous membranes moist. NECK: Supple, no masses. CV: Regular rate and rhythm, no murmurs, rubs, or gallops. 2+ radial pulses. PULMONARY: Normal effort, clear to auscultation bilaterally, no wheezes, rales, or rhonchi. ABDOMEN: Healed lower transverse abdominal incisions, positive bowel sounds, soft, mild tenderness to deep palpation in lower abdomen, nondistended. EXTREMITIES: No edema, cyanosis, or clubbing. MUSCULOSKELETAL: Moves all extremities well. NEUROLOGICAL: No obvious deficits. DERMATOLOGIC: No rashes or suspicious lesions in exposed areas. PSYCHIATRIC: Alert, interactive, talkative. - Patient Data Lab Results Last 24 hrs: Laboratory Results - last 24 hr 09/12/19 09/12/19 09/12/19 Range/Units 10:30 10:30 12:00 WBC 13.15 H (5.00-10.00) 10^3/uL RBC 5.42 (4.50-6.00) 10^6/uL Hgb 16.1 (13.0-17.0) g/dL Hct 49.5 (40.0-52.0) % MCV 91.3 (82.0-92.0) fL MCH 29.7 (27.0-31.0) pg MCHC 32.5 (32.0-36.0) g/dL RDW 14.9 H (11.5-14.5) % Plt Count 296 (150-400) 10^3/uL MPV 8.7 (7.4-10.4) fL Immature Gran % (Auto) 0.2 (0.0-5.0) % Neut % (Auto) 80.9 H (50.0-70.0) % Lymph % (Auto) 13.2 L (20.0-40.0) % Gregory % (Auto) 4.5 (2.0-8.0) % Eos % (Auto) 1.0 (1.0-3.0) % Baso % (Auto) 0.2 (0.0-1.0) % Neut # (Auto) 10.65 H (2.50-7.00) 10^3/uL Lymph # (Auto) 1.73 (1.00-4.00) 10^3/uL Gregory # (Auto) 0.59 (0.10-0.80) 10^3/uL Eos # (Auto) 0.13 (0.10-0.30) 10^3/uL Baso # (Auto) 0.03 (0.00-0.10) 10^3/uL Immature Gran # (Auto) 0.02 (0.00-0.50) 10^3/uL Sodium 142 (136-145) mmol/L Potassium 3.7 (3.3-5.3) mmol/L Chloride 106 (98-115) mmol/L Carbon Dioxide 26.3 (21.0-32.0) mmol/L Anion Gap 13.4 (5-15) mmol/L BUN 15 (6-25) mg/dL Creatinine 0.80 (0.51-1.17) mg/dL Est Cr Clr Drug Dosing 134.15 mL/min Estimated GFR (MDRD) > 60 mL/min Glucose 120 H (75 - 99) mg/dL Lactic Acid 1.4 (0.4-2.0) mmol/L Calcium 8.9 (8.7-10.3) mg/dL Total Bilirubin 0.7 (0.2-1.0) mg/dL AST 15 (15-37) U/L ALT 21 (12-78) U/L Alkaline Phosphatase 75 (46-116) IU/L C-Reactive Protein (0.0-0.9) mg/dL Total Protein 7.7 (6.4-8.2) g/dL Albumin 3.64 (3.00-4.80) g/dL COVID-19 ([facility]MI[facility]) (NEGATIVE) 09/12/19 09/12/19 09/13/19 Range/Units 13:17 13:21 07:15 WBC 17.27 H (5.00-10.00) 10^3/uL RBC 5.43 (4.50-6.00) 10^6/uL Hgb 16.3 (13.0-17.0) g/dL Hct 49.2 (40.0-52.0) % MCV 90.6 (82.0-92.0) fL MCH 30.0 (27.0-31.0) pg MCHC 33.1 (32.0-36.0) g/dL RDW 14.6 H (11.5-14.5) % Plt Count 312 (150-400) 10^3/uL MPV 9.5 (7.4-10.4) fL Immature Gran % (Auto) 0.3 (0.0-5.0) % Neut % (Auto) 83.2 H (50.0-70.0) % Lymph % (Auto) 10.7 L (20.0-40.0) % Gregory % (Auto) 5.7 (2.0-8.0) % Eos % (Auto) 0.0 L (1.0-3.0) % Baso % (Auto) 0.1 (0.0-1.0) % Neut # (Auto) 14.39 H (2.50-7.00) 10^3/uL Lymph # (Auto) 1.84 (1.00-4.00) 10^3/uL Gregory # (Auto) 0.98 H (0.10-0.80) 10^3/uL Eos # (Auto) 0.00 L (0.10-0.30) 10^3/uL Baso # (Auto) 0.01 (0.00-0.10) 10^3/uL Immature Gran # (Auto) 0.05 (0.00-0.50) 10^3/uL Sodium (136-145) mmol/L Potassium (3.3-5.3) mmol/L Chloride (98-115) mmol/L Carbon Dioxide (21.0-32.0) mmol/L Anion Gap (5-15) mmol/L BUN (6-25) mg/dL Creatinine (0.51-1.17) mg/dL Est Cr Clr Drug Dosing mL/min Estimated GFR (MDRD) mL/min Glucose (75 - 99) mg/dL Lactic Acid (0.4-2.0) mmol/L Calcium (8.7-10.3) mg/dL Total Bilirubin (0.2-1.0) mg/dL AST (15-37) U/L ALT (12-78) U/L Alkaline Phosphatase (46-116) IU/L C-Reactive Protein 1.8 H (0.0-0.9) mg/dL Total Protein (6.4-8.2) g/dL Albumin (3.00-4.80) g/dL COVID-19 ([facility]) Negative (NEGATIVE) 09/13/19 Range/Units 07:15 WBC (5.00-10.00) 10^3/uL RBC (4.50-6.00) 10^6/uL Hgb (13.0-17.0) g/dL Hct (40.0-52.0) % MCV (82.0-92.0) fL MCH (27.0-31.0) pg MCHC (32.0-36.0) g/dL RDW (11.5-14.5) % Plt Count (150-400) 10^3/uL MPV (7.4-10.4) fL Immature Gran % (Auto) (0.0-5.0) % Neut % (Auto) (50.0-70.0) % Lymph % (Auto) (20.0-40.0) % Gregory % (Auto) (2.0-8.0) % Eos % (Auto) (1.0-3.0) % Baso % (Auto) (0.0-1.0) % Neut # (Auto) (2.50-7.00) 10^3/uL Lymph # (Auto) (1.00-4.00) 10^3/uL Gregory # (Auto) (0.10-0.80) 10^3/uL Eos # (Auto) (0.10-0.30) 10^3/uL Baso # (Auto) (0.00-0.10) 10^3/uL Immature Gran # (Auto) (0.00-0.50) 10^3/uL Sodium 138 (136-145) mmol/L Potassium 3.4 (3.3-5.3) mmol/L Chloride 100 (98-115) mmol/L Carbon Dioxide 26.6 (21.0-32.0) mmol/L Anion Gap 14.8 (5-15) mmol/L BUN 13 (6-25) mg/dL Creatinine 0.71 (0.51-1.17) mg/dL Est Cr Clr Drug Dosing 151.15 mL/min Estimated GFR (MDRD) > 60 mL/min Glucose 114 H (75 - 99) mg/dL Lactic Acid (0.4-2.0) mmol/L Calcium 8.5 L (8.7-10.3) mg/dL Total Bilirubin 0.6 (0.2-1.0) mg/dL AST 17 (15-37) U/L ALT 30 (12-78) U/L Alkaline Phosphatase 76 (46-116) IU/L C-Reactive Protein (0.0-0.9) mg/dL Total Protein 7.8 (6.4-8.2) g/dL Albumin 3.49 (3.00-4.80) g/dL COVID-19 ([facility]MIAS) (NEGATIVE) Result Diagrams: 09/13/19 07:15 09/13/19 07:15 Sepsis Event Note - Evaluation Sepsis Screening Result: No Definite Risk - Focused Exam Vital Signs: Vital Signs Temp Pulse Resp BP BP Pulse Ox 09/13/19 08:04 131/90 09/13/19 06:15 36.8 C 69 20 158/94 H 97 09/13/19 03:00 36.7 C 66 20 163/81 H 97 09/12/19 23:45 37.1 C 66 22 H 178/89 H 97 Date Exam was Performed: 09/13/19 Time Exam was Performed: 10:31 Problem List Initiated/Reviewed/Updated: Yes Orders Last 24hrs: Active Orders 24 hr Category Date Time Status Patient Status [ADT] Routine ADT 09/12/19 14:06 Active Intake and Output [RC] 0700,1900 Care 09/12/19 16:58 Active Notify Provider Vital Signs [RC] ASDIRECTED Care 09/12/19 17:04 Active Oxygen Therapy [RC] PRN Care 09/12/19 16:57 Active Ready for Discharge [RC] PER UNIT ROUTINE Care 09/13/19 10:23 Ordered Up With Assistance [RC] ASDIRECTED Care 09/12/19 16:57 Active VTE/DVT Education [RC] PER UNIT ROUTINE Care 09/12/19 16:57 Active Vital Signs [RC] 0700,1100,1500,1900,2300,0300 Care 09/12/19 16:57 Active Clear Liquid Diet [DIET] Diet 09/12/19 Dinner Active CULTURE BLOOD [BC] Stat Lab 09/12/19 14:20 Received CULTURE BLOOD [BC] Stat Lab 09/12/19 14:35 Received Acetaminophen [Tylenol] Med 09/12/19 16:57 Active 650 mg PO Q4H PRN Ketorolac [Toradol] Med 09/13/19 00:00 Active 30 mg IVPUSH Q6H PRN Omeprazole Med 09/13/19 07:30 Active 20 mg PO ACBREAKFAST Ondansetron [Zofran] Med 09/12/19 16:57 Active 4 mg IV Q4H PRN Pregabalin [Lyrica] Med 09/12/19 21:00 Active 75 mg PO BID Sodium Chloride 0.9% [Normal Saline] 50 ml Med 09/12/19 13:15 Active IV ASDIRECTED cefTRIAXone [Rocephin] Med 09/13/19 12:00 Active 2 gm IVPUSH Q24H lisinopriL [Prinivil] Med 09/13/19 09:00 Active 20 mg PO DAILY metroNIDAZOLE/Normal Saline [Flagyl 500 MG in NS 100 ML Med 09/12/19 16:00 Active ] 500 mg Premix Bag 1 bag IV Q8H Blood Culture x2 Reflex Set [OM.PC] Stat Ot 09/12/19 14:12 Ordered Resuscitation Status Routine Resus Stat 09/12/19 16:57 Ordered Medication Orders Acetaminophen (Tylenol) 650 mg PO Q4H PRN PRN Reason: Pain (Mild 1-3)/fever Last Admin: 09/13/19 08:03 Dose: 650 mg Documented by: ALEXIA Ceftriaxone Sodium (Rocephin) 2 gm IVPUSH Q24H [facility] Last Admin: 09/13/19 10:20 Dose: 2 gm Documented by: ALEXIA Sodium Chloride (Normal Saline) 50 mls @ 200 mls/min IV ASDIRECTED [facility] Last Admin: 09/12/19 23:56 Dose: 200 mls/min Documented by: Admin: 09/12/19 17:51 Dose: 200 mls/min Documented by: Admin: 09/12/19 13:37 Dose: 200 mls/min Documented by: RADHA Metronidazole 500 mg/ Premix 100 mls @ 100 mls/hr IV Q8H [facility] Last Admin: 09/13/19 07:55 Dose: 100 mls/hr Documented by: Infusion: 09/13/19 00:49 Dose: 100 mls/hr Documented by: Admin: 09/12/19 23:49 Dose: 100 mls/hr Documented by: Infusion: 09/12/19 18:52 Dose: 100 mls/hr Documented by: Admin: 09/12/19 17:52 Dose: 100 mls/hr Documented by: JESUSITA Ketorolac Tromethamine (Toradol) 30 mg IVPUSH Q6H PRN PRN Reason: Pain (moderate 4-6) Stop: 09/17/19 00:01 Last Admin: 09/13/19 05:57 Dose: 30 mg Documented by: Admin: 09/12/19 23:45 Dose: 30 mg Documented by: DONNELL Lisinopril (Prinivil) 20 mg PO DAILY [facility] Last Admin: 09/13/19 08:04 Dose: 20 mg Documented by: ALEXIA Omeprazole (Omeprazole) 20 mg PO ACBREAKFAST [facility] Last Admin: 09/13/19 06:35 Dose: Not Given Documented by: Admin: 09/13/19 05:35 Dose: 20 mg Documented by: DONNELL Ondansetron HCl (Zofran) 4 mg IV Q4H PRN PRN Reason: Nausea/Vomiting Last Admin: 09/13/19 07:51 Dose: 4 mg Documented by: Admin: 09/13/19 00:07 Dose: 4 mg Documented by: Admin: 09/12/19 17:49 Dose: 4 mg Documented by: JESUSITA Pregabalin (Lyrica) 75 mg PO BID [facility] Last Admin: 09/13/19 08:04 Dose: 75 mg Documented by: Admin: 09/12/19 20:35 Dose: 75 mg Documented by: DONNELL Assessment/Plan Comment:: HPI summary: Mr. Rivero is a 48yoM with past medical history significant for several prior episodes of diverticulitis (last 07/24/2019) and significant prior weight loss and subsequent panniculectomy 05/01/19 who was in his usual state of health (notably with chronic intermittent abdominal and back pain as well as chronic intermittent nausea) until the day prior to presentation to the ED and that evening was out late with friends not having much fluid intake and felt like he became dehydrated. The following morning, he developed severe lower abdominal pain and increased nausea with emesis. Upon presentation to the ED, he complained of severe pain in the lower abdomen. His chronic pain is most often involving his back, lower abdomen at the surgical incision sites, and thighs at the site of increased friction of soft tissue s/p significant weight loss. He previously was taking tramadol on a daily basis and in the more recent past endorses that this hasn't worked as well any longer and has been taking [place] 5/325mg on a typically daily basis. He has been having more persistence of nausea. Endorsed to the ED provider that hot showers are typically the only thing that makes the nausea improve or go away. Has ondansetron on medication list, but hasn't been taking regularly due to feeling it hasn't helped as much. He has a history of prior substance abuse, including with alcohol (sober since January 2015), opiates (illicit and prescribed), and cocaine. He currently endorses smoking marijuana (doesn't specify amount) daily in the evening. He denies any other current or recent substance use. ED course: - VS reassuring without fever, hypotension, or tachycardia - CBC/CMP/CRP normal except WBC 13, CRP 1.8 - CT abdomen/pelvis with acute sigmoid diverticulitis without complication - NS 1L, ondansetron 4mg IV x2, hydromorphone 1mg IV, ketorolac 30mg IV, ceftriaxone 2g IV - Observation admission was deemed necessary by the ED provider and patient due to persistent abdominal pain and nausea Hospital course: Given IVF, ceftriaxone/metronidazole IV, and prn ondansetron and ketorolac. Remained afebrile without VS instability. Pain and nausea controlled. Tolerating clear liquids without significant pain or nausea. He endorses feeling much better and feels ready for discharge to home for ongoing management. CBC/CMP normal except WBC 17. Blood cultures without growth thus far. Had a lengthy discussion with the patient about the recurrent diverticulitis and need for future repeat colonoscopy in 6-8 weeks if symptoms completely resolve or colorectal surgery consultation for possible resection due to frequency of recurrences. Also discussed the confounding factors of chronic marijuana and opiate use likely playing a role with pain and nausea, possibly related to cannabis hyperemesis syndrome. Hospitalization problems and plan: # Diverticulitis # Persistent abdominal pain # Persistent nausea/vomiting # Cannabis hyperemesis syndrome, possible # Marijuana use: Currently smokes daily # Chronic opiate use Chronic, stable conditions: # HTN: Initial BPs elevated in ED, then normalized. Continue lisinopril. # Chronic pain: Important to have close outpatient follow-up and management. Continue pregabalin. # Hx substance abuse (alcohol, cocaine), in remission Hospitalization details: # FEN: NS 150cc/hr given during stay. Electrolytes normal on days of admission and discharge. Clear liquid diet. # PPX: Enoxaparin for DVT ppx if staying >24hrs. # Code status: FULL. # Disposition: Admit to observation status 09/12/19 for clinical monitoring and ma nagement of diverticulitis. Discharge to home 09/13/19.
--- NOTE | 2019-09-13 11:08 | PCM.DCSUM1 ---
Discharge Summary - Hospital Course Free Text/Narrative:: Date of admission: 09/12/19 Date of discharge: 09/13/19 Admission diagnoses: # Diverticulitis # Persistent abdominal pain # Persistent nausea/vomiting # Cannabis hyperemesis syndrome, possible # Marijuana use # Chronic opiate use # Chronic pain # Hypertension # Hx substance abuse (alcohol, cocaine), in remission Discharge diagnoses: # Diverticulitis, recurrent # Persistent abdominal pain # Persistent nausea/vomiting # Cannabis hyperemesis syndrome, possible # Marijuana use # Chronic opiate use # Chronic pain # Hypertension # Hx substance abuse (alcohol, cocaine), in remission Consultations: None Procedures: None Hospital course: Mr. Rivero is a 48yoM with past medical history significant for several prior episodes of diverticulitis (last 07/24/2019) and significant prior weight loss and subsequent panniculectomy 05/01/19 who was in his usual state of health (notably with chronic intermittent abdominal and back pain as well as chronic intermittent nausea) until the day prior to presentation to the ED and that evening was out late with friends not having much fluid intake and felt like he became dehydrated. The following morning, he developed severe lower abdominal pain and increased nausea with emesis. Upon presentation to the ED, he complained of severe pain in the lower abdomen. His chronic pain is most often involving his back, lower abdomen at the surgical incision sites, and thighs at the site of increased friction of soft tissue s/p significant weight loss. He previously was taking tramadol on a daily basis and in the more recent past endorses that this hasn't worked as well any longer and has been taking [place] 5/325mg on a typically daily basis. He has been having more persistence of nausea. Endorsed to the ED provider that hot showers are typically the only thing that makes the nausea improve or go away. Has ondansetron on medication list, but hasn't been taking regularly due to feeling it hasn't helped as much. He has a history of prior substance abuse, including with alcohol (sober since January 2015), opiates (illicit and prescribed), and cocaine. He currently endorses smoking marijuana (doesn't specify amount) daily in the evening. He denies any other current or recent substance use. ED course: - VS reassuring without fever, hypotension, or tachycardia - CBC/CMP/CRP normal except WBC 13, CRP 1.8 - CT abdomen/pelvis with acute sigmoid diverticulitis without complication - NS 1L, ondansetron 4mg IV x2, hydromorphone 1mg IV, ketorolac 30mg IV, ceftriaxone 2g IV - Observation admission was deemed necessary by the ED provider and patient due to persistent abdominal pain and nausea Hospital course: Given IVF, ceftriaxone/metronidazole IV, and prn ondansetron and ketorolac. Remained afebrile without VS instability. Pain and nausea controlled. Tolerating clear liquids without significant pain or nausea. He endorses feeling much better and feels ready for discharge to home for ongoing management. CBC/CMP normal except WBC 17. Blood cultures without growth thus far. Had a lengthy discussion with the patient about the recurrent diverticulitis and need for future repeat colonoscopy in 6-8 weeks if symptoms completely resolve or colorectal surgery consultation for possible resection due to frequency of recurrences. Also discussed the confounding factors of chronic marijuana and opiate use likely playing a role with pain and nausea, possibly related to cannabis hyperemesis syndrome. Discharge and follow-up recommendations: - Discharge to home - New medications at discharge: - Augmentin 875/125mg BID x8 days to complete 10 day antibiotic course - Ondansetron 4mg po q4h prn nausea #30 - Ketorolac 10mg po q6h prn pain #12 - [place] 5/325mg BID prn severe pain #10 - Follow-up with PCP Sudhakar Gama APRN-GAGE, in 4-5 days; recommend repeat CBC at that time to reevaluate WBC - Patient either needs colonoscopy in 6-8 weeks (if abdominal pain related to diverticulitis improves and he has no recurrent flares) or referral to general surgery for consideration of resection (if has lack of resolution of diverticulitis symptoms or has any additional recurrences, given frequent recurrences and underlying risks) Note: This is a same day admission and discharge. - Discharge Data Discharge Date: 09/13/19 Discharge Disposition: Home, Self-Care 01 Condition: Good - Referral to Home Health Primary Care Physician: Sudhakar Gama NP - Patient Instructions Diet: GI Soft/Low Residue/Low Fiber Activity: As Tolerated Showering/Bathing: May Shower Notify Provider of: Fever, Increased Pain - Discharge Plan *PRESCRIPTION DRUG MONITORING PROGRAM REVIEWED*: Yes *COPY OF PRESCRIPTION DRUG MONITORING REPORT IN PATIENT MARIANO: Yes Prescriptions/Med Rec: Amoxicillin/Clavulanate K [Augmentin 875-125 MG] 1 tab PO BID 8 Days #16 tablet Acetaminophen/HYDROcodone [[place] 325-5 MG] 1 tab PO BID PRN #10 PRN Reason: Severe pain Ketorolac [Toradol] 10 mg PO Q6H PRN #12 tab PRN Reason: Pain Ondansetron [Zofran] 4 mg PO Q4H PRN #30 tab PRN Reason: Nausea Home Medications: Home Meds Multivitamin [Multi-Vitamin Daily] 1 tab PO DAILY 04/20/14 [History] Oxymetazoline [Afrin Original 0.05% Nasal [place]] 2 sprays INH Q12HR PRN 09/26/18 [History] Lisinopril 20 mg PO DAILY #30 09/28/18 [Rx] Omeprazole Magnesium [Prilosec Otc] 20 mg PO DAILY 09/12/19 [History] Pregabalin [Lyrica] 75 mg PO BID 09/12/19 [History] Acetaminophen [Tylenol] 650 mg PO Q4H PRN tablet 09/13/19 [Rx] Acetaminophen/HYDROcodone [[place] 325-5 MG] 1 tab PO BID PRN #10 09/13/19 [Rx] Amoxicillin/Clavulanate K [Augmentin 875-125 MG] 1 tab PO BID 8 Days #16 tablet 09/13/19 [Rx] Ketorolac [Toradol] 10 mg PO Q6H PRN #12 tab 09/13/19 [Rx] Ondansetron [Zofran] 4 mg PO Q4H PRN #30 tab 09/13/19 [Rx] Referrals: Sudhakar Gama, MEDICAL RECORD CONSULTANT [Primary Care Provider] - 09/17/19 - Discharge Summary/Plan Comment DC Time >30 min.: Yes - Patient Data Vitals - Most Recent: Last Vital Signs Temp 36.6 C 09/13/19 10:34 Pulse 65 09/13/19 10:34 Resp 20 09/13/19 10:34 BP 174/91 H 09/13/19 10:34 Pulse Ox 97 09/13/19 10:34 Weight - Most Recent: 129.274 kg I&O - Last 24 hours: Intake & Output 08/06/20 08/07/20 08/07/20 22:59 06:59 14:59 Intake Total 2350 305 Output Total 50 Balance 2350 255 Lab Results - Last 24 hrs: Laboratory Results - last 24 hr 09/12/19 09/12/19 09/12/19 Range/Units 10:30 10:30 12:00 WBC 13.15 H (5.00-10.00) 10^3/uL RBC 5.42 (4.50-6.00) 10^6/uL Hgb 16.1 (13.0-17.0) g/dL Hct 49.5 (40.0-52.0) % MCV 91.3 (82.0-92.0) fL MCH 29.7 (27.0-31.0) pg MCHC 32.5 (32.0-36.0) g/dL RDW 14.9 H (11.5-14.5) % Plt Count 296 (150-400) 10^3/uL MPV 8.7 (7.4-10.4) fL Immature Gran % (Auto) 0.2 (0.0-5.0) % Neut % (Auto) 80.9 H (50.0-70.0) % Lymph % (Auto) 13.2 L (20.0-40.0) % [place] % (Auto) 4.5 (2.0-8.0) % Eos % (Auto) 1.0 (1.0-3.0) % Baso % (Auto) 0.2 (0.0-1.0) % Neut # (Auto) 10.65 H (2.50-7.00) 10^3/uL Lymph # (Auto) 1.73 (1.00-4.00) 10^3/uL [place] # (Auto) 0.59 (0.10-0.80) 10^3/uL Eos # (Auto) 0.13 (0.10-0.30) 10^3/uL Baso # (Auto) 0.03 (0.00-0.10) 10^3/uL Immature Gran # (Auto) 0.02 (0.00-0.50) 10^3/uL Sodium 142 (136-145) mmol/L Potassium 3.7 (3.3-5.3) mmol/L Chloride 106 (98-115) mmol/L Carbon Dioxide 26.3 (21.0-32.0) mmol/L Anion Gap 13.4 (5-15) mmol/L BUN 15 (6-25) mg/dL Creatinine 0.80 (0.51-1.17) mg/dL Est Cr Clr Drug Dosing 134.15 mL/min Estimated GFR (MDRD) > 60 mL/min Glucose 120 H (75 - 99) mg/dL Lactic Acid 1.4 (0.4-2.0) mmol/L Calcium 8.9 (8.7-10.3) mg/dL Total Bilirubin 0.7 (0.2-1.0) mg/dL AST 15 (15-37) U/L ALT 21 (12-78) U/L Alkaline Phosphatase 75 (46-116) IU/L C-Reactive Protein (0.0-0.9) mg/dL Total Protein 7.7 (6.4-8.2) g/dL Albumin 3.64 (3.00-4.80) g/dL COVID-19 (ERMIAS) (NEGATIVE) 09/12/19 09/12/19 09/13/19 Range/Units 13:17 13:21 07:15 WBC 17.27 H (5.00-10.00) 10^3/uL RBC 5.43 (4.50-6.00) 10^6/uL Hgb 16.3 (13.0-17.0) g/dL Hct 49.2 (40.0-52.0) % MCV 90.6 (82.0-92.0) fL MCH 30.0 (27.0-31.0) pg MCHC 33.1 (32.0-36.0) g/dL RDW 14.6 H (11.5-14.5) % Plt Count 312 (150-400) 10^3/uL MPV 9.5 (7.4-10.4) fL Immature Gran % (Auto) 0.3 (0.0-5.0) % Neut % (Auto) 83.2 H (50.0-70.0) % Lymph % (Auto) 10.7 L (20.0-40.0) % [place] % (Auto) 5.7 (2.0-8.0) % Eos % (Auto) 0.0 L (1.0-3.0) % Baso % (Auto) 0.1 (0.0-1.0) % Neut # (Auto) 14.39 H (2.50-7.00) 10^3/uL Lymph # (Auto) 1.84 (1.00-4.00) 10^3/uL [place] # (Auto) 0.98 H (0.10-0.80) 10^3/uL Eos # (Auto) 0.00 L (0.10-0.30) 10^3/uL Baso # (Auto) 0.01 (0.00-0.10) 10^3/uL Immature Gran # (Auto) 0.05 (0.00-0.50) 10^3/uL Sodium (136-145) mmol/L Potassium (3.3-5.3) mmol/L Chloride (98-115) mmol/L Carbon Dioxide (21.0-32.0) mmol/L Anion Gap (5-15) mmol/L BUN (6-25) mg/dL Creatinine (0.51-1.17) mg/dL Est Cr Clr Drug Dosing mL/min Estimated GFR (MDRD) mL/min Glucose (75 - 99) mg/dL Lactic Acid (0.4-2.0) mmol/L Calcium (8.7-10.3) mg/dL Total Bilirubin (0.2-1.0) mg/dL AST (15-37) U/L ALT (12-78) U/L Alkaline Phosphatase (46-116) IU/L C-Reactive Protein 1.8 H (0.0-0.9) mg/dL Total Protein (6.4-8.2) g/dL Albumin (3.00-4.80) g/dL COVID-19 (ERMIAS) Negative (NEGATIVE) 09/13/19 Range/Units 07:15 WBC (5.00-10.00) 10^3/uL RBC (4.50-6.00) 10^6/uL Hgb (13.0-17.0) g/dL Hct (40.0-52.0) % MCV (82.0-92.0) fL MCH (27.0-31.0) pg MCHC (32.0-36.0) g/dL RDW (11.5-14.5) % Plt Count (150-400) 10^3/uL MPV (7.4-10.4) fL Immature Gran % (Auto) (0.0-5.0) % Neut % (Auto) (50.0-70.0) % Lymph % (Auto) (20.0-40.0) % [place] % (Auto) (2.0-8.0) % Eos % (Auto) (1.0-3.0) % Baso % (Auto) (0.0-1.0) % Neut # (Auto) (2.50-7.00) 10^3/uL Lymph # (Auto) (1.00-4.00) 10^3/uL [place] # (Auto) (0.10-0.80) 10^3/uL Eos # (Auto) (0.10-0.30) 10^3/uL Baso # (Auto) (0.00-0.10) 10^3/uL Immature Gran # (Auto) (0.00-0.50) 10^3/uL Sodium 138 (136-145) mmol/L Potassium 3.4 (3.3-5.3) mmol/L Chloride 100 (98-115) mmol/L Carbon Dioxide 26.6 (21.0-32.0) mmol/L Anion Gap 14.8 (5-15) mmol/L BUN 13 (6-25) mg/dL Creatinine 0.71 (0.51-1.17) mg/dL Est Cr Clr Drug Dosing 151.15 mL/min Estimated GFR (MDRD) > 60 mL/min Glucose 114 H (75 - 99) mg/dL Lactic Acid (0.4-2.0) mmol/L Calcium 8.5 L (8.7-10.3) mg/dL Total Bilirubin 0.6 (0.2-1.0) mg/dL AST 17 (15-37) U/L ALT 30 (12-78) U/L Alkaline Phosphatase 76 (46-116) IU/L C-Reactive Protein (0.0-0.9) mg/dL Total Protein 7.8 (6.4-8.2) g/dL Albumin 3.49 (3.00-4.80) g/dL COVID-19 (ERMIAS) (NEGATIVE) Med Orders - Current: Current Medications Acetaminophen (Tylenol) 650 mg PO Q4H PRN PRN Reason: Pain (Mild 1-3)/fever Last Admin: 09/13/19 08:03 Dose: 650 mg Documented by: Ceftriaxone Sodium (Rocephin) 2 gm IVPUSH Q24H [facility] Last Admin: 09/13/19 10:20 Dose: 2 gm Documented by: Sodium Chloride (Normal Saline) 50 mls @ 200 mls/min IV ASDIRECTED [facility] Last Admin: 09/12/19 23:56 Dose: 200 mls/min Documented by: Metronidazole 500 mg/ Premix 100 mls @ 100 mls/hr IV Q8H [facility] Last Admin: 09/13/19 07:55 Dose: 100 mls/hr Documented by: Ketorolac Tromethamine (Toradol) 30 mg IVPUSH Q6H PRN PRN Reason: Pain (moderate 4-6) Stop: 09/17/19 00:01 Last Admin: 09/13/19 05:57 Dose: 30 mg Documented by: Lisinopril (Prinivil) 20 mg PO DAILY [facility] Last Admin: 09/13/19 08:04 Dose: 20 mg Documented by: Omeprazole (Omeprazole) 20 mg PO ACBREAKFAST [facility] Last Admin: 09/13/19 06:35 Dose: Not Given Documented by: Ondansetron HCl (Zofran) 4 mg IV Q4H PRN PRN Reason: Nausea/Vomiting Last Admin: 09/13/19 07:51 Dose: 4 mg Documented by: Pregabalin (Lyrica) 75 mg PO BID [facility] Last Admin: 09/13/19 08:04 Dose: 75 mg Documented by: Discontinued Medications Ceftriaxone Sodium (Rocephin) 2 gm IVPUSH ONETIME ONE Stop: 09/12/19 14:13 Last Admin: 09/12/19 15:04 Dose: 2 gm Documented by: Hydromorphone HCl (Dilaudid) 1 mg IVPUSH ONETIME ONE Stop: 09/12/19 10:57 Last Admin: 09/12/19 11:04 Dose: 1 mg Documented by: Sodium Chloride (Normal Saline) 1,000 mls @ 1,000 mls/hr IV .BOLUS ONE Stop: 09/12/19 11:22 Last Admin: 09/12/19 10:44 Dose: 1,000 mls/hr Documented by: Sodium Chloride (Normal Saline) 1,000 mls @ 999 mls/hr IV .BOLUS ONE Stop: 09/12/19 15:12 Last Admin: 09/12/19 15:02 Dose: 999 mls/hr Documented by: Iopamidol (Isovue-370 (76%)) 100 ml IV ONETIME ONE Stop: 09/12/19 13:14 Last Admin: 09/12/19 13:36 Dose: 75 ml Documented by: Ketorolac Tromethamine (Toradol) 30 mg IVPUSH ONETIME ONE Stop: 09/12/19 10:57 Last Admin: 09/12/19 11:00 Dose: 30 mg Documented by: Ketorolac Tromethamine (Toradol) 30 mg IM Q6H PRN PRN Reason: Pain (moderate 4-6) Last Admin: 09/12/19 17:47 Dose: 30 mg Documented by: Lisinopril (Prinivil) 20 mg PO DAILY ONE Stop: 09/12/19 19:01 Last Admin: 09/12/19 19:04 Dose: 20 mg Documented by: Ondansetron HCl (Zofran) 4 mg IVPUSH ONETIME ONE Stop: 09/12/19 10:24 Last Admin: 09/12/19 10:38 Dose: 4 mg Documented by: Ondansetron HCl (Zofran) Confirm Administered Dose 4 mg .ROUTE .STK-MED ONE Stop: 09/12/19 12:41 Last Admin: 09/12/19 12:44 Dose: Not Given Documented by: Ondansetron HCl (Zofran) 4 mg IVPUSH ONETIME ONE Stop: 09/12/19 12:43 Last Admin: 09/12/19 12:43 Dose: 4 mg Documented by:
[2019-09-13] MEDS ORDERED: cefTRIAXone 2 GM Vial IVPUSH SCH (12:00)
== END 2019-09-13 11:14 | disposition home or self-care (01) ==
LOC: KA.ED 10:13 → KA.MS 14:06
PROVIDERS: ADMIT Family Medicine; ATTEND Family Medicine
DX: K57.32 Diverticulitis of large intestine without perforation or abscess without bleeding (principal); I10 Essential (primary) hypertension; G89.29 Other chronic pain; E66.9 Obesity, unspecified; F12.90 Cannabis use, unspecified, uncomplicated; F11.90 Opioid use, unspecified, uncomplicated; F14.11 Cocaine abuse, in remission; F10.11 Alcohol abuse, in remission; E78.00 Pure hypercholesterolemia, unspecified; F17.210 Nicotine dependence, cigarettes, uncomplicated; Z20.828 Contact with and (suspected) exposure to other viral communicable diseases; Z79.899 Other long term (current) drug therapy; Z98.890 Other specified postprocedural states; Z68.36 Body mass index [BMI] 36.0-36.9, adult
CPT/HCPCS: 36415; 74177; 80053; 83605; 85025; 86140; 87040; 96361; 96365; 96366; 96372; 96374; 96375; 96376; 99284; 99285-25; A9270-GY; G0378; J0696; J1170; J1885; J2405; J3490; J7030; J7050; Q9967; U0002